=== PATIENT | male | born 1965 | race American Indian/Alaskan Native ===

== ENCOUNTER 2018-02-04 13:06 | Emergency (ER) | payer SELFPAY ==
[2018-02-04 13:54] VITALS: BP 152/84
[2018-02-04] MEDS ORDERED: ZOFRAN ODT PO ONE (15:59)
[2018-02-04] MEDS ORDERED: NORCO 7.5/325 PO ONE (15:59)
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
== END 2018-02-04 16:40 | disposition home or self-care (01) ==
LOC: ED 13:06
DX: S09.90XA Unspecified injury of head, initial encounter (principal); F17.200 Nicotine dependence, unspecified, uncomplicated; F12.10 Cannabis abuse, uncomplicated; W01.0XXA Fall on same level from slipping, tripping and stumbling without subsequent striking against object, initial encounter; Y93.89 Activity, other specified; Y92.89 Other specified places as the place of occurrence of the external cause; Y99.8 Other external cause status
CPT/HCPCS: 99282; Q0162

== ENCOUNTER 2018-04-10 13:29 | Emergency (ER) | payer MEDICAID ==
[2018-04-10 13:40] VITALS: BP 129/63
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
--- NOTE | 2018-04-10 16:05 | Cat Scan Report ---
FINAL REPORT EXAM: CT HEAD/BRAIN WO CON HISTORY: head injury, headache and dizziness COMPARISON: None. TECHNIQUE: Multiple contiguous axial images were obtained from the skullbase to the vertex without administration of IV contrast. FINDINGS: Brain volume is normal for age. No hemorrhage, mass, mass effect, or midline shift. Ventricles are not enlarged. Normal basal cisterns. No pathologic extra-axial fluid collection. No evidence of acute infarct. No skull fracture. Paranasal sinuses and mastoid air cells are clear. Bilateral orbits are grossly intact. IMPRESSION: No acute intracranial abnormality.
== END 2018-04-10 17:36 | disposition home or self-care (01) ==
LOC: ED 13:29
DX: S06.0X0A Concussion without loss of consciousness, initial encounter (principal); F17.200 Nicotine dependence, unspecified, uncomplicated; W18.30XA Fall on same level, unspecified, initial encounter; Y93.89 Activity, other specified; Y92.89 Other specified places as the place of occurrence of the external cause; Y99.8 Other external cause status
CPT/HCPCS: 70450; 99283

== ENCOUNTER 2019-04-27 12:41 | Emergency (ER) | payer MEDICAID ==
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
[2019-04-27 12:50] VITALS: BP 140/76
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
--- NOTE | 2019-04-27 15:31 | Cat Scan Report ---
CT HEAD WITHOUT CONTRAST INDICATION / CLINICAL INFORMATION: head injury now has dizziness and nausea. TECHNIQUE: Axial imaging performed from the skull apex through the skull base without the use of cont rast. Sagittal and coronal reformatted images. All CT scans at this location are performed using CT dose reduction for ALARA by means of automated exposure control. COMPARISON: 04/10/2018 FINDINGS: CEREBRAL PARENCHYMA: No significant abnormality. No acute territorial infarct. HEMORRHAGE: None. EXTRA-AXIAL SPACES: Normal in size and morphology for the patient's age. VENTRICULAR SYSTEM: Normal in size and morphology for the patient's age. MIDLINE SHIFT OR HERNIATION: None. CEREBELLUM / BRAINSTEM: No significant abnormality. CALVARIUM: No significant abnormality. ORBITS: Normal as visualized. PARANASAL SINUSES / MASTOID AIR CELLS: Normal as visualized. SOFT TISSUES of HEAD: No significant abnormality. ADDITIONAL FINDINGS: None. IMPRESSION: Normal CT brain. Signer Name: Masood Holman Jr, MD Signed: 04/27/2019 3:27 PM Workstation Name: [id number]
== END 2019-04-27 16:09 | disposition home or self-care (01) ==
LOC: ED 12:41
DX: F07.81 Postconcussional syndrome (principal); F32.9 Major depressive disorder, single episode, unspecified; F10.10 Alcohol abuse, uncomplicated; M25.512 Pain in left shoulder; F17.200 Nicotine dependence, unspecified, uncomplicated; Z98.890 Other specified postprocedural states
CPT/HCPCS: 70450

== ENCOUNTER 2021-01-22 09:33 | Emergency (ER) | payer MEDICAID ==
[2021-01-22 11:22] VITALS: BP 148/100
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
--- NOTE | 2021-01-22 13:08 | Cat Scan Report ---
CT HEAD WITHOUT CONTRAST INDICATION / CLINICAL INFORMATION: dizzy/campos after head injury. TECHNIQUE: All CT scans at this location are performed using CT dose reduction for ALARA by means of automated e xposure control. COMPARISON: 04/27/2019 FINDINGS: HEMORRHAGE: None. EXTRA-AXIAL SPACES: Normal in size and morphology for the patient's age. VENTRICULAR SYSTEM: Normal in size and morphology for the patient's age. CEREBRAL PARENCHYMA: No significant abnormality. No acute territorial infarct. MIDLINE SHIFT OR HERNIATION: None. CEREBELLUM / BRAINSTEM: No significant abnormality. ORBITS: Normal as visualized. SOFT TISSUES of HEAD: No significant abnormality. CALVARIUM: No significant abnormality. PARANASAL SINUSES / MASTOID AIR CELLS: Normal as visualized. ADDITIONAL FINDINGS: None. IMPRESSION: 1. No acute intracranial abnormality. No significant interval change since prior exam 04/27/2019. Signer Name: Juan Manzano MD Signed: 01/22/2021 1:04 PM Workstation Name: [id number]
== END 2021-01-22 14:20 | disposition home or self-care (01) ==
LOC: ED 09:33
DX: S09.90XA Unspecified injury of head, initial encounter (principal); F32.9 Major depressive disorder, single episode, unspecified; F17.200 Nicotine dependence, unspecified, uncomplicated; F12.10 Cannabis abuse, uncomplicated; Z98.890 Other specified postprocedural states; W22.8XXA Striking against or struck by other objects, initial encounter; Y93.89 Activity, other specified; Y92.89 Other specified places as the place of occurrence of the external cause; Y99.8 Other external cause status
CPT/HCPCS: 70450

== ENCOUNTER 2021-04-06 08:52 | Emergency (ER) | payer MEDICAID ==
[2021-04-06 09:01] VITALS: BP 150/75
[2021-04-06 10:07] LABS: Bilirubin,Urine NEG (Negative); Blood,Urine NEG (Negative); Color,Urine Yellow (Yellow); Mucus,Urine FEW /HPF; Protein,Urine <15 mg/dL mg/dL (Negative); Urobilinogen,Urine < 2.0 mg/dL (<2.0); WBC,Urine < 1.0 /HPF (0.0-6.0)
--- NOTE | 2021-04-06 11:10 | Emergency Department Report ---
ED Male HPI - General Chief complaint: Urogenital-Male Stated complaint: BILATERAL GROIN PAIN Time Seen by Provider: 04/06/21 11:10 Source: patient Mode of arrival: Ambulatory Limitations: No Limitations - History of Present Illness Initial comments: 55-year-old -[place] male with a past medical history of psychosis depression alcohol abuse presents to the emergency room stating he is having growing pains on both sides for the last 3 weeks that comes and goes. Patient states that the pain is worse when he bends down or leans to the side he feels it pulling. Patient denies any testicular pain or testicular swelling no discharge from his penis. Patient does admit that he has been lifting heavy cases of water. Patient reports he has been doing sit ups. Patient states he has been taken Tylenol and ibuprofen which she says does not help much. Patient does report a history of prostatitis in the past. Patient has a primary care pr ovider at [place] but chose not to follow-up with her. Patient denies any fever chills no nausea no vomiting no chest pain or shortness of breath. MD Complaint: groin pain Onset/Timin -: week(s) Location: right inguinal region, left inguinal region Radiation: none Severity: mild Quality: aching Consistency: intermittent Improves with: none Worsens with: movement (Bending, leaning to this right and left) denies other symptoms - Related Data Previous Rx's Medication Instructions Recorded Last Taken Type Ibuprofen [Motrin 800 MG tab] 800 mg PO Q8HR PRN #30 tablet 04/06/21 Unknown Rx Allergies Allergy/AdvReac Type Severity Reaction Status Date / Time No Known Allergies Allergy Unverified 02/04/18 13:49 ED Review of Systems ROS: Stated complaint: BILATERAL GROIN PAIN Other details as noted in HPI Comment: All other systems reviewed and negative ED Past Medical Hx - Past Medical History Previous Medical History?: Yes Hx Psychiatric Treatment: Yes (PSYCHOSIS, DEPRESSION) Additional medical history: ETOH ABUSE, LEFT SHOULDER PAIN, LEFT COLLAR BONE BROKEN - Surgical History Past Surgical History?: Yes Additional Surgical History: LEFT JAW SURGERY WITH LEFT JAW PLATE - Social History Smoking Status: Current Every Day Smoker Substance Use Type: Alcohol, Marijuana - Medications Home Medications: Home Medications Medication Instructions Recorded Confirmed Last Taken Type Ibuprofen [Motrin 800 MG tab] 800 mg PO Q8HR PRN #30 tablet 04/06/21 Unknown Rx ED Physical Exam - General Limitations: No Limitations General appearance: alert, in no apparent distress - Head Head exam: Present: atraumatic, normocephalic - Eye Eye exam: Present: normal appearance - ENT ENT exam: Present: normal exam, normal external ear exam - Neck Neck exam: Present: normal inspection, full ROM - Respiratory Respiratory exam: Absent: accessory muscle use - Cardiovascular Cardiovascular Exam: Present: regular rate - GI/Abdominal GI/Abdominal exam: Present: soft, tenderness (Groin area), normal bowel sounds. Absent: distended, guarding, rebound - exam: Present: normal inspection, circumcision. Absent: testicular tenderness, scrotal swelling External exam: Present: normal external exam - Extremities Exam Extremities exam: Present: normal inspection, full ROM - Back Exam Back exam: Present: normal inspection, full ROM - Neurological Exam Neurological exam: Present: alert, oriented X3, normal gait - Psychiatric Psychiatric exam: Present: normal affect, normal mood - Skin Skin exam: Present: warm, dry, intact, normal color. Absent: rash ED Course Vital Signs 04/06/21 08:56 Temperature 97.6 F Pulse Rate 64 Respiratory 18 Rate Blood Pressure 150/75 O2 Sat by Pulse 99 Oximetry ED Medical Decision Making - Medical Decision Making 55-year-old -[place] male with a past medical history of psychosis depression alcohol abuse presents to the emergency room stating he is having growing pains on both sides for the last 3 weeks that comes and goes. Patient states that the pain is worse when he bends down or leans to the side he feels it pulling. Patient denies any testicular pain or testicular swelling no discharge from his penis. Patient does admit that he has been lifting heavy cases of water. Patient reports he has been doing sit ups. Patient states he has been taken Tylenol and ibuprofen which she says does not help much. Patient does report a history of prostatitis in the past. Patient has a primary care provider at [place] but chose not to follow-up with her. Patient denies any fever chills no nausea no vomiting no chest pain or shortness of breath. Patient has tenderness to both psoas muscle with deep palpation. Discussed with patient placed him on ibuprofen and referral to orthopedic provider. Critical care attestation.: If time is entered above; I have spent that time in minutes in the direct care of this critically ill patient, excluding procedure time. ED Disposition Clinical Impression: Strain of psoas muscle Disposition: DC-01 TO HOME OR SELFCARE Is pt being admited?: No Does the pt Need Aspirin: No Condition: Stable Instructions: Muscle Strain, [id number] Additional Instructions: Please take pain medication as prescribed. Follow-up with an orthopedic provider I have listed 1 below for your convenience. Increase your fluid intake. I also referred you to a primary care provider that is local. Prescriptions: Ibuprofen [Motrin 800 MG tab] 800 mg PO Q8HR PRN #30 tablet PRN Reason: Pain , Severe (7-10) Referrals: PRIMARY MD BLAYNE [Primary Care Provider] - 3-5 Days STAR CHRISTENSEN MD [Staff Physician] - 3-5 Days MURIEL MARIE MD [Staff Physician] - 3-5 Days Forms: Work/School Release Form(ED) Time of Disposition: 11:40
== END 2021-04-06 11:48 | disposition home or self-care (01) ==
LOC: ED 08:52
DX: S39.011A Strain of muscle, fascia and tendon of abdomen, initial encounter (principal); F32.9 Major depressive disorder, single episode, unspecified; F17.200 Nicotine dependence, unspecified, uncomplicated; F12.10 Cannabis abuse, uncomplicated; Z98.890 Other specified postprocedural states; Z79.1 Long term (current) use of non-steroidal anti-inflammatories (NSAID); X58.XXXA Exposure to other specified factors, initial encounter; Y93.89 Activity, other specified; Y92.89 Other specified places as the place of occurrence of the external cause; Y99.8 Other external cause status
CPT/HCPCS: 81001